=== PATIENT | male | born 1955 | race Caucasian/White ===

== ENCOUNTER → 2017-02-09 | Outpatient (CLI) | payer BC ==
[~2017-02-09] MED LIST: ASPIR-LOW81 M1; Antivert PO; Ecotrin PO; PLAVIX75 MG PO; PRAVACHOL10 MG PO; TRILIPIX135 MG PO; ZETIA10 MG PO; [UNRECOGNIZED DRUG - OTHER]
== END | disposition home or self-care (01) ==
LOC: CDC 13:15
DX: N20.0 Calculus of kidney (principal)
CPT/HCPCS: 93000